=== PATIENT | male | born 1955 | race Caucasian/White ===

== ENCOUNTER 2016-11-18 11:14 | Emergency (ER) | payer BC, OTHER ==
[2016-11-18] MEDS ORDERED: Sodium Chloride 0.9% 10 ML Syringe FLUSH PRN (11:34)
[2016-11-18] MEDS ORDERED: Sodium Chloride 0.9% 2.5 ML Syringe FLUSH PRN (11:34)
[2016-11-18] MEDS ORDERED: Morphine 2 MG/ML Syringe IVPUSH ONE (11:34)
--- NOTE | 2016-11-18 11:34 | EDM.PDOC ---
ED HPI GI/ABDOMINAL - General Chief Complaint: Abdominal Pain Stated Complaint: ABD PAIN Time Seen by Provider: 11/18/16 11:16 Source of Information: Reports: Patient History Limitations: Reports: No limitations - History of Present Illness INITIAL COMMENTS - FREE TEXT/NARRATIVE: History of present illness: [] Patient started having lower abdominal pain 6 days ago and epigastic/left upper abdomen pain. Has not had this pain previously. He denies any fevers, chills, nausea, vomiting, diarrhea or constipation. He thinks he may have a bladder infection but denies any change in his urine color, odor or discomfort when urinating. Review of systems: As per history of present illness and below otherwise all systems reviewed and negative. Past medical history: As per history of present illness and as reviewed below otherwise noncontributory. Surgical history: As per history of present illness and as reviewed below otherwise noncontributory. Social history: No reported history of drug or alcohol abuse. Family history: As per history of present illness and as reviewed below otherwise noncontributory. Physical exam: General: Well developed, well nourished in NAD HEENT: Atraumatic, normocephalic, pupils reactive, negative for conjunctival pallor or scleral icterus, mucous membranes moist, throat clear, neck supple, nontender, trachea midline. Lungs: Clear to auscultation, breath sounds equal bilaterally, chest nontender. Heart: S1S2, regular, negative for clicks, rubs, or JVD. Abdomen: Normal active bowel sounds, soft, nondistended, tender suprapubic and epigastrium with no rebound or guarding. Negative for masses or hepatosplenomegaly. Negative for costovertebral tenderness. Pelvis: Stable nontender. Genitourinary: Deferred. Rectal: Deferred. Extremities: Atraumatic, negative for cords or calf pain. Neurovascular unremarkable. Neuro: Awake, alert, oriented. Cranial nerves II through XII unremarkable. Cerebellum unremarkable. Motor and sensory unremarkable throughout. Exam nonfocal. Diagnostics: [] Labs CT abdomen and urine. Therapeutics: [] Dehydration and pain meds patient is comfortable with no emesis and chooses to go home. Impression: [] 4-5 mm stone in the right ureter in the mid pelvis with mild hydronephrosis, mildly prominent pancreatic duct with a small stone at the pancreatic head Plan: [] Followup urology for kidney stone, followup gastroenterology admin note Sean in [place] for the pancreatic ductal stone. Definitive disposition and diagnosis as appropriate pending reevaluation and review of above. - Related Data Allergies/ADRs: Allergies Allergy/AdvReac Type Severity Reaction Status Date / Time No Known Allergies Allergy Verified 11/18/16 11:30 Home Meds: Home Meds Aspirin [Low Dose Aspirin EC] 1 bag PO DAILY 10/02/14 [History] Lanreotide Acetate [Somatuline Depot] 1 injection IM ASDIRECTED 10/02/14 [ History] Simvastatin [Zocor] 1 mg PO DAILY 10/02/14 [History] Testosterone [Androgel] 1 tube PERCUT ASDIRECTED 10/02/14 [History] metFORMIN [Glucophage] 500 mg PO BID 10/02/14 [History] Levothyroxine 125 mcg PO DAILY 11/18/16 [History] Ondansetron HCl [Zofran] 4 mg PO Q6HR #12 tablet 11/18/16 [Rx] traMADol [Ultram] 50 mg PO Q8H PRN #16 tablet 11/18/16 [Rx] Social & Family History - Tobacco Use Smoking Status *Q: Never Smoker Second Hand Smoke Exposure: No - Alcohol Use Days Per Week of Alcohol Use: 1 Number of Drinks Per Day: 1 Total Drinks Per Week: 1 - Recreational Drug Use Recreational Drug Use: No ED ROS GENERAL - Review of Systems Review Of Systems: See Below (History of present illness) ED EXAM, GI/ABD - Physical Exam Exam: See Below (See history of present illness) Course - Vital Signs Last Recorded V/S: Last Vital Signs Temp 36.2 C 11/18/16 11:31 Pulse 55 L 11/18/16 11:31 Resp 20 11/18/16 11:31 BP 139/71 11/18/16 11:31 Pulse Ox 97 11/18/16 11:31 - Orders/Labs/Meds Orders: Active Orders 24 hr Category Date Time Status Abdomen Pelvis w Cont [CT] Stat Exams 11/18/16 13:06 Taken Morphine Med 11/18/16 12:16 Active 2 mg IVPUSH ASDIRECTED PRN Sodium Chloride 0.9% [Saline Flush] Med 11/18/16 11:34 Active 10 ml FLUSH ASDIRECTED PRN Sodium Chloride 0.9% [Saline Flush] Med 11/18/16 11:34 Active 2.5 ml FLUSH ASDIRECTED PRN Peripheral IV Insertion Adult [OM.PC] Stat Oth 11/18/16 11:34 Ordered Medication Orders Morphine Sulfate (Morphine) 2 mg IVPUSH ASDIRECTED PRN PRN Reason: Pain Stop: 11/20/16 12:17 Last Admin: 11/18/16 13:35 Dose: 2 mg Admin: 11/18/16 12:21 Dose: 2 mg Sodium Chloride (Saline Flush) 10 ml FLUSH ASDIRECTED PRN PRN Reason: Keep Vein Open Last Admin: 11/18/16 11:49 Dose: 10 ml Sodium Chloride (Saline Flush) 2.5 ml FLUSH ASDIRECTED PRN PRN Reason: Keep Vein Open Last Admin: 11/18/16 11:49 Dose: 2.5 ml Labs: Laboratory Tests 11/18/16 11/18/16 11/18/16 Range/Units 11:40 11:40 12:15 WBC 10.48 (4.0-11.0) K/uL RBC 5.00 (4.50-5.90) M/uL Hgb 15.5 (13.0-17.0) g/dL Hct 45.2 (38.0-50.0) % MCV 90.4 (80.0-98.0) fL MCH 31.0 (27.0-32.0) pg MCHC 34.3 (31.0-37.0) g/dL RDW Std Deviation 46.4 (28.0-62.0) fl RDW Coeff of Hernandez 14 (11.0-15.0) % Plt Count 286 (150-400) K/uL MPV 10.80 (7.40-12.00) fL Neut % (Auto) 48.7 (48.0-80.0) % Lymph % (Auto) 37.9 (16.0-40.0) % Tom[place]kins % (Auto) 10.1 (0.0-15.0) % Eos % (Auto) 3.1 (0.0-7.0) % Baso % (Auto) 0.2 (0.0-1.5) % Neut # 5.1 (1.4-5.7) K/uL Lymph # 4.0 H (0.6-2.4) K/uL Tompkins # 1.1 H (0.0-0.8) K/uL Eos # 0.3 (0.0-0.7) K/uL Baso # 0.0 (0.0-0.1) K/uL Nucleated RBC % 0.0 /100WBC Nucleated RBCs # 0 K/uL Sodium 142 (136-146) mmol/L Potassium 4.0 (3.5-5.1) mmol/L Chloride 105 (98-110) mmol/L Carbon Dioxide 28 (21-31) mmol/L BUN 11 (6.0-23.0) mg/dL Creatinine 1.0 (0.6-1.5) mg/dL Est Cr Clr Drug Dosing 82.62 mL/min Estimated GFR (MDRD) > 60.0 ml/min Glucose 197 H (60-110) mg/dL Calcium 9.3 (8.8-10.8) mg/dL Total Bilirubin 0.6 (0.1-1.5) mg/dL AST 28 (5-40) IU/L ALT 44 (8-54) IU/L Alkaline Phosphatase 86 (40-150) Total Protein 7.4 (6.0-8.0) g/dL Albumin 4.0 (3.4-4.8) g/dL Globulin 3.4 (2.0-3.5) g/dL Albumin/Globulin Ratio 1.2 L (1.3-2.8) Lipase 122 H (7-80) U/L Urine Color DARK YELLOW Urine Appearance SLT CLOUDY Urine pH 5.5 (5.0-8.0) Ur Specific [place] 1.015 (1.001-1.035) Urine Protein TRACE (NEGATIVE) mg/dL Urine Glucose (UA) NEGATIVE (NEGATIVE) mg/dL Urine Ketones NEGATIVE (NEGATIVE) mg/dL Urine Occult Blood LARGE H (NEGATIVE) Urine Nitrite NEGATIVE (NEGATIVE) Urine Bilirubin SMALL H (NEGATIVE) Urine Ictotest NEGATIVE Urine Urobilinogen 1.0 (<2.0) EU/dL Ur Leukocyte Esterase NEGATIVE (NEGATIVE) Urine RBC TOO NUMBEROUS TO CT (0-2/HPF) Urine WBC 1-2 (0-5/HPF) Ur Epithelial Cells RARE (NONE-FEW) Urine Bacteria FEW (NEGATIVE) Meds: Medications Generic Name Dose Route Start Last Admin Trade Name Freq PRN Reason Stop Dose Admin Morphine Sulfate 2 mg 11/18/16 12:16 11/18/16 13:35 Morphine IVPUSH 11/20/16 12:17 2 mg ASDIRECTED PRN Administration Pain Sodium Chloride 10 ml 11/18/16 11:34 11/18/16 11:49 Saline Flush FLUSH 10 ml ASDIRECTED PRN Administration Keep Vein Open Sodium Chloride 2.5 ml 11/18/16 11:34 11/18/16 11:49 Saline Flush FLUSH 2.5 ml ASDIRECTED PRN Administration Keep Vein Open Discontinued Medications Generic Name Dose Route Start Last Admin Trade Name Freq PRN Reason Stop Dose Admin Sodium Chloride 1,000 mls @ 999 mls/hr 11/18/16 11:36 11/18/16 11:47 Normal Saline IV 11/18/16 12:36 999 mls/hr .Bolus ONE Administration Iopamidol 100 ml 11/18/16 13:38 11/18/16 13:38 Isovue-370 (76%) IVPUSH 11/18/16 13:39 100 ml ONETIME STA Administration Morphine Sulfate 2 mg 11/18/16 11:34 11/18/16 11:47 Morphine IVPUSH 11/18/16 11:35 2 mg ONETIME ONE Administration Departure - Departure Time of Disposition: 14:37 Disposition: Home, Self-Care 01 Condition: good Clinical Impression: Ureterolithiasis, Pancreatic duct stones Forms: ED Department Discharge Additional Instructions: The following information is given to patients seen in the emergency department who are being discharged to home. This information is to outline your options for follow-up care. We provide all patients seen in our emergency department with a follow-up referral. The need for follow-up, as well as the timing and circumstances, are variable depending upon the specifics of your emergency department visit. If you don't have a primary care physician on staff, we will provide you with a referral. We always advise you to contact your personal physician following an emergency department visit to inform them of the circumstance of the visit and for follow-up with them and/or the need for any referrals to a consulting specialist. The emergency department will also refer you to a specialist when appropriate. This referral assures that you have the opportunity for follow-up care with a specialist. All of these measure are taken in an effort to provide you with optimal care, which includes your follow-up. Under all circumstances we always encourage you to contact your private physician who remains a resource for coordinating your care. When calling for follow-up care, please make the office aware that this follow-up is from your recent emergency room visit. If for any reason you are refused follow-up, please contact the [facility] Emergency Department at and asked to speak to the emergency department charge nurse. Tramadol and Zofran for pain and nausea Followup gastroenterology in [place]. Call tomorrow for appointment phone number [phone] Pascual Estrada Followup with Dr. Barrett, urology tomorrow for appointment followup. - My Orders Last 24 Hours: My Active Orders 11/18/16 11:34 Sodium Chloride 0.9% [Saline Flush] 10 ml FLUSH ASDIRECTED PRN Sodium Chloride 0.9% [Saline Flush] 2.5 ml FLUSH ASDIRECTED PRN Peripheral IV Insertion Adult [OM.PC] Stat 11/18/16 12:16 Morphine 2 mg IVPUSH ASDIRECTED PRN 11/18/16 13:06 Abdomen Pelvis w Cont [CT] Stat - Assessment/Plan Last 24 Hours: My Active Orders 11/18/16 11:34 Sodium Chloride 0.9% [Saline Flush] 10 ml FLUSH ASDIRECTED PRN Sodium Chloride 0.9% [Saline Flush] 2.5 ml FLUSH ASDIRECTED PRN Peripheral IV Insertion Adult [OM.PC] Stat 11/18/16 12:16 Morphine 2 mg IVPUSH ASDIRECTED PRN 11/18/16 13:06 Abdomen Pelvis w Cont [CT] Stat
[2016-11-18] MEDS ORDERED: Sodium Chloride 0.9% 1,000 ML IV ONE (11:36)
[2016-11-18 12:12] LABS: CHLORIDE,CL 105 mmol/L (98-110); SODIUM,NA 142 mmol/L (136-146)
[2016-11-18] MEDS: Morphine 2 MG/ML Syringe IVPUSH PRN ×2 (12:21→13:35)
[2016-11-18] MEDS ORDERED: Iopamidol 755 Mg/ML 100 ML Bottle IVPUSH STA (13:38)
[2016-11-18 15:01] VITALS: BP 103/56
--- NOTE | 2016-11-19 21:28 | CT ---
EXAM DATE: 11/18/16 PATIENT'S AGE: 61 Patient: DAO CRUZ Facility: [place], [place] Site . Site : [id number] Study: CT Abdomen/Pelvis [id number] w cont-11/18/2016 1:40:29 PM Ordering Physician: Robert Vincent Final Report: INDICATION: Abdominal pain right lower quadrant to testicular region. TECHNIQUE: CT abdomen and pelvis performed after IV injection of 100 mL of Omnipaque Isovue -370. FINDINGS: Lucent lesion in the T11 vertebral body likely hemangioma. Splenectomy. Postsurgical changes right lower quadrant and pelvis. Multiple surgical clips in the right lower quadrant and pelvis. Mild atelectasis in the lung bases. Small hiatal hernia. Moderate diffuse fatty with patchy areas of nodular increased enhancement in the central liver and in the liver adjacent to the gallbladder likely related to nodular areas of focal fatty sparing rather than other lesions. Minimal fluid and stranding about both kidneys. 4-5 mm partially obstructing stone in the right ureter at the level the mid pelvis on image 118 results in mild dilatation of the right ureter with surrounding inflammatory stranding and mild increased enhancement of the ureteral wall as well as mild hydronephrosis. Small calcification associated with the pancreatic duct in the inferior pancreatic head. The pancreatic duct is mildly prominent. Prostate is mildly enlarged and heterogeneous. Mild irregular wall thickening involving the urinary bladder. Small periumbilical hernia containing only fat. Remainder negative. IMPRESSION: 1. Partially obstructing 4-5 mm stone in the right ureter the level of the mid pelvis results in mild hydronephrosis and ureteral dilatation as well as mildly increased enhancement of the right ureteral wall with surrounding stranding. 2. Mildly enlarged heterogeneous prostate gland. 3. Upper limits of normal to mildly prominent pancreatic duct with small stone or calcification associated with it and pancreatic head. 4. Diffuse fatty infiltration of the liver with nodular areas of increased enhancement or density in the central liver and about the gallbladder likely related to areas of focal fatty sparing. 5. Splenectomy. Other findings as above. Dictated by Avtar Craig MD @ 11/18/2016 2:21:27 PM Dictated by: Avtar Craig MD @ 11/18/2016 14:21:30 (Electronic Signature) Report Signed by Proxy and Original Signed Document filed in the Medical Record. ISABELL
== END 2016-11-18 14:59 | disposition home or self-care (01) ==
LOC: MW.ED 11:14
DX: N13.2 Hydronephrosis with renal and ureteral calculous obstruction (principal); K86.89 Other specified diseases of pancreas; Z79.82 Long term (current) use of aspirin; Z79.84 Long term (current) use of oral hypoglycemic drugs; Z79.899 Other long term (current) drug therapy
CPT/HCPCS: 74177; 80053; 81001; 83690; 85025; 96361; 96374; 96376; 99284; J2270; J7040; Q9967

== ENCOUNTER → 2016-11-26 | Outpatient (CLI) | payer OTHER | END | disposition home or self-care (01) | LOC: MW.CHUR 13:34 | PROVIDERS: ATTEND Urology | DX: N20.1 Calculus of ureter (principal) | CPT/HCPCS: 81001 ==

== ENCOUNTER → 2016-12-03 | Outpatient (CLI) | payer OTHER ==
--- NOTE | 2016-12-03 14:35 | US ---
EXAMINATION: Right upper quadrant ultrasound HISTORY: Congenital malformations COMPARISON: CT dated 11/18/2016 TECHNIQUE: Grayscale and color Doppler images obtained of the right upper quadrant. FINDINGS: The pancreas is not optimally characterized. The liver is mildly increased in generalized echotexture without a focal hepatic mass. The gallbladder wall thickness is normal. There is however a shadowing stone within the neck of the gallbladder. Common bile duct measures 2 mm. The right kid arjun measures 12 cm [id number] without evidence of hydronephrosis. The sonographic Orantes sign is n ot reported. IMPRESSION: 1. Fatty infiltration of the liver. 2. Cholelithiasis without secondary signs of cholecystitis.
== END ==
LOC: MW.US 09:03
PROVIDERS: ATTEND Family Medicine
DX: Q45.3 Other congenital malformations of pancreas and pancreatic duct (principal); K76.0 Fatty (change of) liver, not elsewhere classified; K80.80 Other cholelithiasis without obstruction
CPT/HCPCS: 76705; 76705-26